=== PATIENT | male | born 1960 | race Caucasian/White ===

== ENCOUNTER 2024-12-27 16:41 | Inpatient (IN) | payer BC ==
[~2024-12-27] VITALS: Ht 175.3 cm; Wt 108.9 kg
[2024-12-27 17:53] LABS: BASOPHILS % 0.4 % (0.0-2.0); EOSINOPHILS % 2.7 % (0.0-5.0); HEMATOCRIT. 37.4 % (42.0-52.0); HEMOGLOBIN. 12.9 g/dL (14.0-18.0); LYMPHOCYTES % 10.6 % (20.0-50.0); MEAN PLATELET VOLUME 7.9 fl (7.4-10.4); MONOCYTES % 11.8 % (2.0-8.0); NEUTROPHILS % 74.5 % (40.0-76.0); PLATELET 355 x1000/uL (130-400); RED BLOOD CELL COUNT 4.04 mill/uL (4.7-6.1); RED CELL DISTRIBUTION WIDTH 14.3 % (11.6-14.6)
[2024-12-27 18:04] LABS: INR 1.0
[2024-12-27 18:07] LABS: CREATININE 0.8 mg/dL (0.6-1.3); UREA NITROGEN BLOOD 18 mg/dL (9-23)
[2024-12-27 18:08] LABS: ETHANOL BLOOD < 10 mg/dL (<10)
[2024-12-27 18:09] LABS: ASPARTATE AMINOTRANSFERASE 18 IU/L (<34); BILIRUBIN DIRECT 0.3 mg/dL (<=3.0)
[2024-12-27 18:10] LABS: BILIRUBIN TOTAL 0.9 mg/dL (0.1-1.0); PROTEIN TOTAL 4.5 g/dL (6.0-8.3)
[2024-12-27 18:13] LABS: TROPONIN I HIGH SENSITIVITY 58 ng/L (3.0-53)
[2024-12-27] MEDS: SODIUM CHLORIDE 0.9% 1,000 ML IV ONE (18:32)
[2024-12-27] MEDS: ASPIRIN 81MG TABLET PO ONE (18:54)
[2024-12-27] MEDS: KCL 20MEQ/100ML PREMIX 100 ML IV SCH (19:03)
[2024-12-27 21:00] LABS: TROPONIN I HIGH SENSITIVITY 413 ng/L (3.0-53)
[2024-12-27 22:30] VITALS: BP 122/82; PULSE 71; RESP 19; TEMP 36.3624
[2024-12-27] MEDS ORDERED: MAGNESIUM/ALUMINUM HYDROXIDE/SIMETHICONE 30ML UDC PO PRN (22:45)
[2024-12-27] MEDS ORDERED: DOCUSATE SODIUM 100MG CAPSULE PO PRN (22:45)
[2024-12-27] MEDS ORDERED: GUAIFENESIN 200MG/10ML SUGAR FREE UDC PO PRN (22:45)
[2024-12-27] MEDS ORDERED: CLONIDINE 0.1MG TABLET PO PRN (22:45)
[2024-12-27] MEDS ORDERED: IPRATROPIUM/ALBUTEROL 0.5-3(2.5)MG/3ML NEB HHN PRN (22:45)
[2024-12-27] MEDS ORDERED: ACETAMINOPHEN 325MG TABLET PO PRN (22:45)
[2024-12-27] MEDS: PANTOPRAZOLE SODIUM 40 MG/VIAL IV SCH (23:25)
[2024-12-27] MEDS: TAMSULOSIN HCL 0.4MG SR CAPSULE PO NR (23:26)
[2024-12-27] MEDS: KETOROLAC 15MG/ML VIAL IV PRN (23:26)
[2024-12-27] MEDS: MAGNESIUM 2 G PREMIX 50 ML IV NR (23:27)
[2024-12-27] MEDS: ENOXAPARIN 100MG/ML SYR SUBCUT SCH ×2 (23:29→23:31)
[2024-12-27] MEDS: SODIUM CHLORIDE 0.45% 1,000 ML IV SCH (23:30)
[2024-12-28] MEDS ORDERED: NITROGLYCERIN 0.4MG TABLET SL SL PRN (00:15)
[2024-12-28] MEDS: CALCIUM GLUCONATE 100MG/ML 10ML VIAL IV NR (01:27)
[2024-12-28] MEDS: MELATONIN 3MG TABLET PO SCH (01:30)
[2024-12-28] MEDS ORDERED: CELE-146 PO (03:17)
[2024-12-28] MEDS ORDERED: TAMS-54 PO (03:17)
[2024-12-28] MEDS ORDERED: LOSA100T33 PO (03:17)
[2024-12-28] MEDS ORDERED: EZET-83 PO (03:17)
[2024-12-28] MEDS ORDERED: ACET-2708 PO (03:17)
[2024-12-28] MEDS ORDERED: B12/1TAB PO (03:17)
[2024-12-28 04:00] VITALS: BP 116/70; PULSE 69; RESP 18; TEMP 36.3; O2SAT 100
[2024-12-28 06:27] LABS: BASOPHILS % 0.3 % (0.0-2.0); EOSINOPHILS % 1.2 % (0.0-5.0); HEMATOCRIT. 31.6 % (42.0-52.0); HEMOGLOBIN. 11.2 g/dL (14.0-18.0); LYMPHOCYTES % 8.9 % (20.0-50.0); MEAN PLATELET VOLUME 8.1 fl (7.4-10.4); MONOCYTES % 13.0 % (2.0-8.0); NEUTROPHILS % 76.6 % (40.0-76.0); PLATELET 285 x1000/uL (130-400); RED BLOOD CELL COUNT 3.44 mill/uL (4.7-6.1); RED CELL DISTRIBUTION WIDTH 13.9 % (11.6-14.6)
[2024-12-28 06:37] LABS: CREATININE 1.1 mg/dL (0.6-1.3)
[2024-12-28 06:38] LABS: CREATINE KINASE MB FRACTION 7.4 ng/mL (0.5-3.6); UREA NITROGEN BLOOD 21 mg/dL (9-23)
[2024-12-28 06:39] LABS: ASPARTATE AMINOTRANSFERASE 20 IU/L (<34)
[2024-12-28 06:40] LABS: BILIRUBIN DIRECT 0.5 mg/dL (<=3.0); BILIRUBIN TOTAL 1.3 mg/dL (0.1-1.0); PROTEIN TOTAL 5.2 g/dL (6.0-8.3)
[2024-12-28 08:00] VITALS: BP 123/78; PULSE 55; PULSE 68; RESP 18; TEMP 36.7; O2SAT 100; O2SAT 96
[2024-12-28 08:07] LABS: TROPONIN I HIGH SENSITIVITY 1286 ng/L (3.0-53)
[2024-12-28 08:20] LABS: CLARITY URINE CLEAR (CLEAR); COLOR URINE YELLOW (YELLOW); GLUCOSE URINE NEGATIVE (NEGATIVE); KETONES URINE NEGATIVE (NEGATIVE); LEUKOCYTE ESTERASE URINE NEGATIVE (NEGATIVE); NITRITE URINE NEGATIVE (NEGATIVE); OCCULT BLOOD URINE NEGATIVE (NEGATIVE); PH URINE 5.5 (4.5-8.0); PROTEIN URINE TRACE (NEGATIVE); SPECIFIC GRAVITY URINE 1.043 (1.005-1.030); UROBILINOGEN URINE 0.2 E.U./dL (0.2-1.0)
[2024-12-28 08:42] LABS: BACTERIA URINE NONE SEEN; RBC URINE 0-2 /hpf (0-2); SQUAMOUS EPITHELIAL CELL URINE RARE /lpf (RARE/1+); WBC URINE 0-2 /hpf (0-2); YEAST URINE NONE SEEN
[2024-12-28 08:45] LABS: *AMPHETAMINES SCREEN URINE NEGATIVE (NEGATIVE); *BARBITURATES SCREEN URINE NEGATIVE (NEGATIVE); *BENZODIAZEPINES SCREEN URINE NEGATIVE (NEGATIVE); *COCAINE SCREEN URINE NEGATIVE (NEGATIVE); METHADONE URINE SCREEN NEGATIVE (NEGATIVE); OPIATES URINE SCREEN NEGATIVE (NEGATIVE)
[2024-12-28 08:46] LABS: CANNABINOID URINE SCREEN NEGATIVE (NEGATIVE); ECSTASY MDMA SCREEN URINE NEGATIVE (NEGATIVE); PHENCYCLIDINE URINE SCREEN NEGATIVE (NEGATIVE)
[2024-12-28 08:51] LABS: BG BASE EXCESS -1.5 mmol/L (-2.0-3.0); BG CARBOXYHEMOGLOBIN 0.2 % (0.5-1.5); BG DEOXYHEMOGLOBIN 3.3 % (0.0-5.0); BG FRACTION INSPIRED OXYGEN 21; BG HCO3 ACT 23.0 mmol/L (21.0-28.0); BG METHEMOGLOBIN 0.3 % (0.5-1.5); BG OXYGEN SATURATION 96.7 % (94.0-98.0); BG OXYHEMOGLOBIN 96.2 % (94.0-98.0); BG PCO2 37.8 mmHg (35.0-48.0); BG PH 7.402 (7.350-7.450); BG PO2 87.7 mmHg (83.0-108.0); BG SAMPLE SITE LEFT BRACHIAL; BG TOTAL HEMOGLOBIN 12.1 g/dL (13.5-17.5); BG VENT MODE ROOM AIR
[2024-12-28] MEDS: ASPIRIN 81MG EC TABLET PO SCH (09:07)
[2024-12-28] MEDS: LOSARTAN 100 MG TABLET PO SCH (09:07)
[2024-12-28 12:00] VITALS: BP_SYST 125; BP_SYST 128; BP_DIAS 82; PULSE 60; PULSE 63; RESP 18; TEMP 36.6; O2SAT 100; O2SAT 97
[2024-12-28 16:00] VITALS: BP 128/73; PULSE 59; PULSE 70; RESP 18; TEMP 36.7; O2SAT 100; O2SAT 98
[2024-12-28 18:41] LABS: TRIGLYCERIDE 83.0 mg/dL (0-150)
[2024-12-28 18:42] LABS: CREATINE KINASE MB FRACTION 4.0 ng/mL (0.5-3.6); LDL CHOLESTEROL 53.0 mg/dL (5-100)
[2024-12-28 18:46] LABS: T4 FREE 1.19 ng/dL (0.89-1.76)
[2024-12-28 18:50] LABS: TROPONIN I HIGH SENSITIVITY 552.0 ng/L (3.0-53)
[2024-12-28 20:00] VITALS: BP 138/77; PULSE 72; RESP 20; TEMP 37.1; O2SAT 99
[2024-12-28] MEDS: ATORVASTATIN CALCIUM 40MG TABLET PO SCH (21:03)
[2024-12-28 22:38] LABS: TROPONIN I HIGH SENSITIVITY 508 ng/L (3.0-53)
[2024-12-29] VITALS: BP 127/78; PULSE 80; RESP 21; TEMP 36.7; O2SAT 98
[2024-12-29 01:06] LABS: CREATINE KINASE MB FRACTION 2.3 ng/mL (0.5-3.6)
[2024-12-29 01:42] LABS: TROPONIN I HIGH SENSITIVITY 391.0 ng/L (3.0-53)
[2024-12-29 04:00] VITALS: BP 136/77; PULSE 67; RESP 19; TEMP 36.8; O2SAT 98
[2024-12-29] MEDS ORDERED: LIDOCAINE HCL 1% 20ML VIAL ONE (07:21)
[2024-12-29] MEDS ORDERED: HEPARIN 1000 UNITS/ML 10ML ONE ×2 (07:22→08:14)
[2024-12-29] MEDS ORDERED: EPINEPHRINE 0.1MG/ML (1:10,000) 10ML SYR ONE (07:22)
[2024-12-29] MEDS ORDERED: IODIXANOL 320MG/ML 100 ML BOTTLE IV ONE (07:22)
[2024-12-29] MEDS ORDERED: ATROPINE SULFATE 1MG/10ML SYR ONE (07:22)
[2024-12-29] MEDS ORDERED: MIDAZOLAM HCL 2 MG/2 ML VIAL ONE (07:51)
[2024-12-29] MEDS ORDERED: FENTANYL CITRATE/PF 50MCG/ML 2ML VIAL ONE (07:52)
[2024-12-29] MEDS ORDERED: VERAPAMIL HCL 2.5 MG/1 ML 2ML VIAL IV ONE (08:14)
[2024-12-29] MEDS ORDERED: ATROPINE SULFATE 1MG/10ML SYR IV PRN (08:45)
[2024-12-29] MEDS: SODIUM CHLORIDE 0.45% 1,000 ML IV ONE (09:00)
[2024-12-29 14:00] VITALS: BP 151/89; PULSE 79; RESP 16; TEMP 36.7; O2SAT 97
[2024-12-29 16:00] VITALS: BP 142/75; PULSE 74; RESP 17; TEMP 36.7; O2SAT 97
[2024-12-29 16:29] LABS: BASOPHILS % 0.2 % (0.0-2.0); EOSINOPHILS % 1.5 % (0.0-5.0); HEMATOCRIT. 30.5 % (42.0-52.0); HEMOGLOBIN. 10.8 g/dL (14.0-18.0); LYMPHOCYTES % 8.3 % (20.0-50.0); MEAN PLATELET VOLUME 7.6 fl (7.4-10.4); MONOCYTES % 13.3 % (2.0-8.0); NEUTROPHILS % 76.7 % (40.0-76.0); PLATELET 308 x1000/uL (130-400); RED BLOOD CELL COUNT 3.31 mill/uL (4.7-6.1); RED CELL DISTRIBUTION WIDTH 13.7 % (11.6-14.6)
[2024-12-29 16:40] LABS: CREATINE KINASE MB FRACTION 1.0 ng/mL (0.5-3.6); CREATININE 1.0 mg/dL (0.6-1.3); UREA NITROGEN BLOOD 14 mg/dL (9-23)
[2024-12-29 16:42] LABS: PHOSPHORUS 3.4 mg/dL (2.5-4.9)
[2024-12-29 16:43] LABS: TROPONIN I HIGH SENSITIVITY 165 ng/L (3.0-53)
[2024-12-29] MEDS: ACETAMINOPHEN 325MG TABLET PO PRN (19:51)
[2024-12-29 20:00] VITALS: BP 142/86; PULSE 76; RESP 15; TEMP 37.1; O2SAT 96
[2024-12-30] VITALS (7 sets, daily range): BP systolic 135–149; BP diastolic 80–95; PULSE 61–74; RESP 12–17; TEMP 36.5–37.2; O2SAT 94–97
[2024-12-30 06:38] LABS: CREATININE 1.0 mg/dL (0.6-1.3); UREA NITROGEN BLOOD 12 mg/dL (9-23)
[2024-12-30 06:41] LABS: PHOSPHORUS 3.9 mg/dL (2.5-4.9)
[2024-12-30 06:42] LABS: BASOPHILS % 0.3 % (0.0-2.0); EOSINOPHILS % 2.8 % (0.0-5.0); HEMATOCRIT. 32.6 % (42.0-52.0); HEMOGLOBIN. 11.5 g/dL (14.0-18.0); LYMPHOCYTES % 10.5 % (20.0-50.0); MEAN PLATELET VOLUME 7.8 fl (7.4-10.4); MONOCYTES % 14.4 % (2.0-8.0); NEUTROPHILS % 72.0 % (40.0-76.0); PLATELET 300 x1000/uL (130-400); RED BLOOD CELL COUNT 3.56 mill/uL (4.7-6.1); RED CELL DISTRIBUTION WIDTH 13.7 % (11.6-14.6)
[2024-12-30] MEDS ORDERED: ALPRAZOLAM 0.25 MG TABLET PO PRN (16:00)
[2024-12-30] MEDS ORDERED: ACETAMINOPHEN 325MG TABLET PO PRN (16:00)
[2024-12-30] MEDS ORDERED: NITROGLYCERIN 0.4MG TABLET SL SL PRN (16:00)
[2024-12-30] MEDS ORDERED: BISACODYL 10MG SUPP PR PRN (21:00)
[2024-12-30] MEDS ORDERED: DIPHENHYDRAMINE 25MG CAPSULE PO PRN (21:00)
[2024-12-30] MEDS: ASCORBIC ACID 500 MG TABLET PO SCH (22:00)
[2024-12-30] MEDS: CHLORHEXIDINE GLUCONATE 4% EXTERNAL USE TOP SCH (22:01)
[2024-12-30] MEDS: ALLOPURINOL 300 MG TABLET PO SCH (22:01)
[2024-12-30] MEDS: SODIUM CHLORIDE 0.9% 3ML FLUSH IVF SCH (22:01)
[2024-12-30] MEDS: DOCUSATE SODIUM 100MG CAPSULE PO SCH (22:01)
[2024-12-31] VITALS (36 sets, daily range): BP systolic 83–139; BP diastolic 48–84; PULSE 58–103; RESP 9–25; TEMP 35.7–37.9; O2SAT 95–100
[2024-12-31] MEDS ORDERED: VANCOMYCIN 1G PREMIX 200 ML IV SCH (05:00)
[2024-12-31] MEDS ORDERED: EPINEPHRINE 5 MG in DEXT 5% WATER 250 ML IV PRN (05:00)
[2024-12-31] MEDS ORDERED: AMINOCAPROIC ACID 5,000 MG in SODIUM CHLORIDE 0.9% 250 ML IV PRN (05:00)
[2024-12-31] MEDS ORDERED: NICARDIPINE 40MG/200ML PREMIX 200 ML IV PRN (05:00)
[2024-12-31] MEDS ORDERED: NOREPINEPHRINE 8MG/250ML PMX 250 ML IV PRN (05:00)
[2024-12-31] MEDS ORDERED: DOBUTAMINE 250 MG/250 ML PREMIX IV PRN (05:00)
[2024-12-31] MEDS ORDERED: DEL NIDO CARDIOPLEGIA 1,000 ML (PREMIX) IV NR ×2 (05:00→06:15)
[2024-12-31] MEDS ORDERED: PAPAVERINE HCL 180MG in SODIUM CHLORIDE 0.9% 24ML IV PRN (05:00)
[2024-12-31 05:25] LABS: INR 1.0
[2024-12-31 05:34] LABS: CREATININE 1.2 mg/dL (0.6-1.3); UREA NITROGEN BLOOD 14 mg/dL (9-23)
[2024-12-31 05:36] LABS: PHOSPHORUS 5.2 mg/dL (2.5-4.9)
[2024-12-31] MEDS: CHLORHEXIDINE GLUCONATE 4% EXTERNAL USE TOP SCH (06:10)
[2024-12-31] MEDS ORDERED: PROPOFOL 10MG/ML 100ML 100 ML IV ONE (06:18)
[2024-12-31] MEDS ORDERED: POLYMYXIN B SULFATE 500000 UNITS/VIAL ONE (06:19)
[2024-12-31] MEDS ORDERED: THROMBIN (BOVINE) 5000 UNITS/VIAL TOP ONE (06:19)
[2024-12-31] MEDS ORDERED: HEPARIN 1000 UNITS/ML 10ML ONE (06:21)
[2024-12-31] MEDS ORDERED: SEVOFLURANE 250 ML LIQUID INH ONE ×2 (06:22)
[2024-12-31] MEDS ORDERED: NITROGLYCERIN 50MG PREMIX 250 ML IV ONE (06:22)
[2024-12-31] MEDS ORDERED: DEXMEDETOMIDINE 100 ML IV ONE (06:36)
[2024-12-31] MEDS ORDERED: DEXMEDETOMIDINE 250 ML IV PRN (06:45)
[2024-12-31] MEDS ORDERED: CEFAZOLIN SODIUM 1000MG/VIAL ONE ×3 (06:46→15:31)
[2024-12-31] MEDS ORDERED: PROPOFOL 200MG/20ML VIAL IV ONE (06:47)
[2024-12-31] MEDS ORDERED: MIDAZOLAM HCL 5 MG/5 ML VIAL ONE (06:47)
[2024-12-31 06:52] LABS: BASOPHILS % 0.4 % (0.0-2.0); EOSINOPHILS % 1.8 % (0.0-5.0); HEMATOCRIT. 30.7 % (42.0-52.0); HEMOGLOBIN. 10.7 g/dL (14.0-18.0); LYMPHOCYTES % 11.9 % (20.0-50.0); MEAN PLATELET VOLUME 7.5 fl (7.4-10.4); MONOCYTES % 14.2 % (2.0-8.0); NEUTROPHILS % 71.7 % (40.0-76.0); PLATELET 307 x1000/uL (130-400); RED BLOOD CELL COUNT 3.32 mill/uL (4.7-6.1); RED CELL DISTRIBUTION WIDTH 13.6 % (11.6-14.6)
[2024-12-31] MEDS ORDERED: FENTANYL CITRATE/PF 50MCG/ML 2ML VIAL ONE ×5 (06:53)
[2024-12-31] MEDS ORDERED: ROCURONIUM BROMIDE 10MG/ML VIAL 5ML IV ONE ×4 (06:58→15:58)
[2024-12-31] MEDS ORDERED: ACETAMINOPHEN 1000MG/100ML 100 ML IV ONE (07:19)
[2024-12-31] MEDS ORDERED: CALCIUM CHLORIDE 1GM/10ML SYR IV ONE ×3 (09:05→13:14)
[2024-12-31] MEDS ORDERED: AMINOCAPROIC ACID 250 MG/ML 20ML VIAL ONE (10:43)
[2024-12-31 16:26] LABS: HEMATOCRIT. 24.0 % (42.0-52.0); HEMOGLOBIN. 8.3 g/dL (14.0-18.0); MEAN PLATELET VOLUME 7.3 fl (7.4-10.4); PLATELET 262 x1000/uL (130-400); RED BLOOD CELL COUNT 2.65 mill/uL (4.7-6.1); RED CELL DISTRIBUTION WIDTH 13.1 % (11.6-14.6)
[2024-12-31] MEDS ORDERED: KCL 10MEQ/50ML PREMIX 200 ML IV PRN (16:30)
[2024-12-31] MEDS ORDERED: KCL 10MEQ/50ML PREMIX 150 ML IV PRN (16:30)
[2024-12-31] MEDS ORDERED: DEXT 5%/0.45% NACL 1000ML 1,000 ML IV SCH (16:30)
[2024-12-31] MEDS ORDERED: DEXTROSE 50% WATER 50ML SYRINGE IV PRN ×2 (16:30)
[2024-12-31 16:43] LABS: CREATININE 1.3 mg/dL (0.6-1.3)
[2024-12-31 16:44] LABS: INR 1.1; UREA NITROGEN BLOOD 19 mg/dL (9-23)
[2024-12-31 16:45] LABS: ASPARTATE AMINOTRANSFERASE 32 IU/L (<34)
[2024-12-31 16:46] LABS: BILIRUBIN TOTAL 2.6 mg/dL (0.1-1.0); PHOSPHORUS 6.7 mg/dL (2.5-4.9); PROTEIN TOTAL 4.9 g/dL (6.0-8.3)
[2024-12-31] MEDS: BLOOD SUGAR DIAGNOSTIC STRIP TEST SCH (17:00)
[2024-12-31 17:13] LABS: BG BASE EXCESS -2.3 mmol/L (-2.0-3.0); BG CARBOXYHEMOGLOBIN 0.3 % (0.5-1.5); BG DEOXYHEMOGLOBIN 0.9 % (0.0-5.0); BG FRACTION INSPIRED OXYGEN 100; BG HCO3 ACT 22.6 mmol/L (21.0-28.0); BG METHEMOGLOBIN 0.3 % (0.5-1.5); BG OXYGEN SATURATION 99.1 % (94.0-98.0); BG OXYHEMOGLOBIN 98.5 % (94.0-98.0); BG PCO2 39.1 mmHg (35.0-48.0); BG PEEP (cmH2O) 5.0 cmH2O; BG PH 7.379 (7.350-7.450); BG PO2 233.6 mmHg (83.0-108.0); BG SAMPLE SITE ALINE; BG TIDAL VOLUME(mL) 550.0 mL; BG TOTAL HEMOGLOBIN 9.7 g/dL (13.5-17.5); BG VENT MODE VENT - AC; BG VENT RATE 15.0 set
[2024-12-31 17:15] LABS: BAND% 2.0 % (1.0-6.0); LYMPHOCYTES % MANUAL 5.0 % (20.0-50.0); MONOCYTES % MANUAL 10.0 % (2.0-8.0); NEUTROPHILS % MANUAL 83.0 % (45.0-75.0); PLATELET ESTIMATE NORMAL
[2024-12-31] MEDS ORDERED: DOPAMINE 400MG/250ML PREMIX 250 ML IV PRN (17:15)
[2024-12-31] MEDS ORDERED: MAGNESIUM 2 G PREMIX 50 ML IV PRN (17:15)
[2024-12-31] MEDS ORDERED: NITROGLYCERIN 50MG PREMIX 250 ML IV PRN (17:15)
[2024-12-31] MEDS ORDERED: ONDANSETRON HCL 4MG/2ML INJ IV PRN (17:15)
[2024-12-31] MEDS ORDERED: ALBUMIN HUMAN 12.5G/250ML (5%) IV PRN (17:15)
[2024-12-31] MEDS ORDERED: SODIUM CHLORIDE 0.9% 500 ML IV PRN (17:15)
[2024-12-31] MEDS ORDERED: MAGNESIUM 1 G PREMIX 100 ML IV PRN (17:15)
[2024-12-31] MEDS ORDERED: MAGNESIUM SULFATE 3 GM in DEXT 5% WATER 100 ML IV PRN (17:15)
[2024-12-31] MEDS: PROPOFOL 10MG/ML 100ML 100 ML IV SCH (17:26)
[2024-12-31] MEDS: DOPAMINE 400MG/250ML PREMIX 250 ML IV PRN (17:27)
[2024-12-31] MEDS: INSULIN REGULAR 100U/100ML PMX 100 ML IV SCH (17:27)
[2024-12-31] MEDS: DEXT 5%/0.45% NACL 1000ML 1,000 ML IV SCH (17:32)
[2024-12-31] MEDS: ALBUMIN HUMAN 12.5G/250ML (5%) IV SCH (17:32)
[2024-12-31 17:33] LABS: BG BASE EXCESS -3.5 mmol/L (-2.0-3.0); BG CARBOXYHEMOGLOBIN 0.4 % (0.5-1.5); BG DEOXYHEMOGLOBIN 6.2 % (0.0-5.0); BG HCO3 ACT 21.1 mmol/L (21.0-28.0); BG METHEMOGLOBIN 0.0 % (0.5-1.5); BG OXYGEN SATURATION 93.8 % (94.0-98.0); BG OXYHEMOGLOBIN 93.4 % (94.0-98.0); BG PCO2 35.6 mmHg (35.0-48.0); BG PH 7.390 (7.350-7.450); BG PO2 73.6 mmHg (83.0-108.0); BG SAMPLE SITE VBG - N/A; BG TOTAL HEMOGLOBIN 8.7 g/dL (13.5-17.5); BG VENT MODE VBG - N/A
[2024-12-31] MEDS: DOCUSATE SODIUM 100MG CAPSULE PO SCH (18:10)
[2024-12-31] MEDS: CEFAZOLIN 1000MG PREMIX 50 ML IV SCH (18:10)
[2024-12-31] MEDS: MAGNESIUM HYDROXIDE 400MG/5ML 30ML UDC PO SCH (18:10)
[2024-12-31 18:57] LABS: BG BASE EXCESS 0.1 mmol/L (-2.0-3.0); BG CARBOXYHEMOGLOBIN 0.3 % (0.5-1.5); BG DEOXYHEMOGLOBIN 1.2 % (0.0-5.0); BG FRACTION INSPIRED OXYGEN 70; BG HCO3 ACT 24.8 mmol/L (21.0-28.0); BG METHEMOGLOBIN 0.3 % (0.5-1.5); BG OXYGEN SATURATION 98.8 % (94.0-98.0); BG OXYHEMOGLOBIN 98.2 % (94.0-98.0); BG PCO2 40.2 mmHg (35.0-48.0); BG PEEP (cmH2O) 5.0 cmH2O; BG PH 7.408 (7.350-7.450); BG PO2 175.1 mmHg (83.0-108.0); BG SAMPLE SITE ALINE; BG TIDAL VOLUME(mL) 550.0 mL; BG TOTAL HEMOGLOBIN 9.4 g/dL (13.5-17.5); BG VENT MODE VENT - AC; BG VENT RATE 15.0 set
[2024-12-31] MEDS: ACETAMINOPHEN 325MG TABLET PO PRN (19:44)
[2024-12-31] MEDS: IPRATROPIUM/ALBUTEROL 0.5-3(2.5)MG/3ML NEB HHN SCH (21:13)
[2024-12-31] MEDS: MORPHINE SULFATE 2 MG/ML INJ (NOT FOR IM USE) IV PRN (23:38)
[2025-01-01] VITALS (112 sets, daily range): BP systolic 79–126; BP diastolic 46–77; PULSE 71–94; RESP 0–28; TEMP 36.6–37.7; O2SAT 90–100
[2025-01-01 00:15] LABS: MEAN PLATELET VOLUME 7.5 fl (7.4-10.4); PLATELET 208 x1000/uL (130-400); RED BLOOD CELL COUNT 2.06 mill/uL (4.7-6.1); RED CELL DISTRIBUTION WIDTH 13.7 % (11.6-14.6)
[2025-01-01 00:19] LABS: HEMATOCRIT. 18.8 % (42.0-52.0)
[2025-01-01 00:26] LABS: CREATININE 1.0 mg/dL (0.6-1.3)
[2025-01-01 00:27] LABS: HEMOGLOBIN. 6.6 g/dL (14.0-18.0); UREA NITROGEN BLOOD 17 mg/dL (9-23)
[2025-01-01 00:29] LABS: PHOSPHORUS 4.5 mg/dL (2.5-4.9)
[2025-01-01] MEDS: KCL 10MEQ/50ML PREMIX 100 ML IV PRN (01:09)
[2025-01-01] MEDS: MAGNESIUM SULFATE 3 GM in DEXT 5% WATER 100 ML IV PRN (01:25)
[2025-01-01 02:35] LABS: BAND% 4.0 % (1.0-6.0); LYMPHOCYTES % MANUAL 4.0 % (20.0-50.0); MONOCYTES % MANUAL 9.0 % (2.0-8.0); NEUTROPHILS % MANUAL 83.0 % (45.0-75.0)
[2025-01-01 02:36] LABS: PLATELET ESTIMATE NORMAL
[2025-01-01 04:53] LABS: HEMATOCRIT. 24.2 % (42.0-52.0); HEMOGLOBIN. 8.5 g/dL (14.0-18.0); MEAN PLATELET VOLUME 7.1 fl (7.4-10.4); PLATELET 204 x1000/uL (130-400); RED BLOOD CELL COUNT 2.69 mill/uL (4.7-6.1); RED CELL DISTRIBUTION WIDTH 14.0 % (11.6-14.6)
[2025-01-01 05:04] LABS: CREATININE 0.9 mg/dL (0.6-1.3); TRIGLYCERIDE 50 mg/dL (0-150); UREA NITROGEN BLOOD 17 mg/dL (9-23)
[2025-01-01 05:06] LABS: PHOSPHORUS 4.7 mg/dL (2.5-4.9)
[2025-01-01] MEDS: INSULIN REGULAR 100U/100ML PMX 100 ML IV SCH (05:10)
[2025-01-01 05:36] LABS: INR 1.1
[2025-01-01 05:47] LABS: BG BASE EXCESS 2.4 mmol/L (-2.0-3.0); BG CARBOXYHEMOGLOBIN 0.3 % (0.5-1.5); BG DEOXYHEMOGLOBIN 2.2 % (0.0-5.0); BG FRACTION INSPIRED OXYGEN 40; BG HCO3 ACT 25.6 mmol/L (21.0-28.0); BG METHEMOGLOBIN 0.3 % (0.5-1.5); BG OXYGEN SATURATION 97.8 % (94.0-98.0); BG OXYHEMOGLOBIN 97.2 % (94.0-98.0); BG PCO2 34.3 mmHg (35.0-48.0); BG PEEP (cmH2O) 5.0 cmH2O; BG PH 7.491 (7.350-7.450); BG PO2 106.8 mmHg (83.0-108.0); BG SAMPLE SITE ALINE; BG TOTAL HEMOGLOBIN 10.0 g/dL (13.5-17.5); BG VENT MODE VENT - CPAP
[2025-01-01] MEDS: MAGNESIUM 2 G PREMIX 50 ML IV PRN (08:28)
[2025-01-01] MEDS: FAMOTIDINE 20MG/2ML VIAL IV SCH (08:28)
[2025-01-01] MEDS: DOPAMINE 400MG/250ML PREMIX 250 ML IV PRN (08:29)
[2025-01-01] MEDS: OXYCODONE HCL/ACETAMINOPHEN 5/325MG TABLET PO PRN ×2 (08:47→13:21)
[2025-01-01 09:55] LABS: BAND% 6.0 % (1.0-6.0); LYMPHOCYTES % MANUAL 9.0 % (20.0-50.0); MONOCYTES % MANUAL 9.0 % (2.0-8.0); NEUTROPHILS % MANUAL 76.0 % (45.0-75.0); PLATELET ESTIMATE NORMAL
[2025-01-01 10:40] LABS: HEMATOCRIT. 23.4 % (42.0-52.0); HEMOGLOBIN. 8.3 g/dL (14.0-18.0); MEAN PLATELET VOLUME 7.5 fl (7.4-10.4); PLATELET 202 x1000/uL (130-400); RED BLOOD CELL COUNT 2.59 mill/uL (4.7-6.1); RED CELL DISTRIBUTION WIDTH 14.2 % (11.6-14.6)
[2025-01-01 10:48] LABS: CREATININE 0.8 mg/dL (0.6-1.3)
[2025-01-01 10:49] LABS: UREA NITROGEN BLOOD 17 mg/dL (9-23)
[2025-01-01 10:51] LABS: PHOSPHORUS 3.8 mg/dL (2.5-4.9)
[2025-01-01] MEDS: ASPIRIN 81MG EC TABLET PO SCH (10:55)
[2025-01-01] MEDS: TAMSULOSIN HCL 0.4MG SR CAPSULE PO SCH (10:55)
[2025-01-01 11:25] LABS: PLATELET ESTIMATE NORMAL
[2025-01-01 11:27] LABS: BAND% 5.0 % (1.0-6.0); LYMPHOCYTES % MANUAL 4.0 % (20.0-50.0); MONOCYTES % MANUAL 10.0 % (2.0-8.0); NEUTROPHILS % MANUAL 81.0 % (45.0-75.0)
[2025-01-01] MEDS: MAGNESIUM HYDROXIDE 400MG/5ML 30ML UDC PO SCH (12:47)
[2025-01-01] MEDS: ALBUMIN HUMAN 12.5G/250ML (5%) IV SCH (16:26)
[2025-01-01 17:41] LABS: HEMATOCRIT. 27.1 % (42.0-52.0); HEMOGLOBIN. 9.4 g/dL (14.0-18.0); MEAN PLATELET VOLUME 7.5 fl (7.4-10.4); PLATELET 217 x1000/uL (130-400); RED BLOOD CELL COUNT 3.00 mill/uL (4.7-6.1); RED CELL DISTRIBUTION WIDTH 14.5 % (11.6-14.6)
[2025-01-01 18:05] LABS: CREATININE 1.2 mg/dL (0.6-1.3); UREA NITROGEN BLOOD 20 mg/dL (9-23)
[2025-01-01 18:07] LABS: PHOSPHORUS 4.2 mg/dL (2.5-4.9)
[2025-01-01] MEDS: FUROSEMIDE 20MG/2ML VIAL IVP SCH (18:27)
[2025-01-01 19:18] LABS: LYMPHOCYTES % MANUAL 4.0 % (20.0-50.0); MONOCYTES % MANUAL 9.0 % (2.0-8.0); NEUTROPHILS % MANUAL 87.0 % (45.0-75.0)
[2025-01-01 19:19] LABS: PLATELET ESTIMATE NORMAL
[2025-01-01] MEDS ORDERED: NALOXONE HCL 0.4MG/ML VIAL IV PRN (20:00)
[2025-01-01] MEDS: ATORVASTATIN CALCIUM 40MG TABLET PO SCH (20:30)
[2025-01-01 23:59] LABS: HEMATOCRIT. 25.7 % (42.0-52.0); HEMOGLOBIN. 9.0 g/dL (14.0-18.0); MEAN PLATELET VOLUME 7.6 fl (7.4-10.4); PLATELET 207 x1000/uL (130-400); RED BLOOD CELL COUNT 2.85 mill/uL (4.7-6.1); RED CELL DISTRIBUTION WIDTH 14.3 % (11.6-14.6)
[2025-01-02] VITALS (87 sets, daily range): BP systolic 82–132; BP diastolic 49–72; PULSE 72–94; RESP 10–26; TEMP 36.5–37.1; O2SAT 88–99
[2025-01-02 00:12] LABS: CREATININE 1.2 mg/dL (0.6-1.3); UREA NITROGEN BLOOD 18 mg/dL (9-23)
[2025-01-02 00:14] LABS: PHOSPHORUS 3.6 mg/dL (2.5-4.9)
[2025-01-02] MEDS: MAGNESIUM 1 G PREMIX 100 ML IV PRN (01:01)
[2025-01-02 05:17] LABS: CREATININE 1.2 mg/dL (0.6-1.3)
[2025-01-02 05:18] LABS: UREA NITROGEN BLOOD 18 mg/dL (9-23)
[2025-01-02 05:20] LABS: PHOSPHORUS 3.1 mg/dL (2.5-4.9)
[2025-01-02 07:07] LABS: LYMPHOCYTES % MANUAL 1.0 % (20.0-50.0); MONOCYTES % MANUAL 11.0 % (2.0-8.0); NEUTROPHILS % MANUAL 88.0 % (45.0-75.0); PLATELET ESTIMATE NORMAL
[2025-01-02] MEDS: FUROSEMIDE 20MG/2ML VIAL IVP SCH (10:37)
[2025-01-02] MEDS: MIDODRINE HCL 5MG TABLET PO SCH (12:16)
[2025-01-02] MEDS ORDERED: NON FORMULARY MED INJ SCH (13:00)
[2025-01-02] MEDS: IRON SUCROSE COMPLEX 100 MG/5 ML ML IV SCH (14:22)
[2025-01-02 16:23] LABS: HEMATOCRIT. 29.0 % (42.0-52.0); HEMOGLOBIN. 9.9 g/dL (14.0-18.0); MEAN PLATELET VOLUME 8.6 fl (7.4-10.4); PLATELET 258 x1000/uL (130-400); RED BLOOD CELL COUNT 3.15 mill/uL (4.7-6.1); RED CELL DISTRIBUTION WIDTH 14.9 % (11.6-14.6)
[2025-01-02 16:39] LABS: BAND% 1.0 % (1.0-6.0); LYMPHOCYTES % MANUAL 4.0 % (20.0-50.0); MONOCYTES % MANUAL 12.0 % (2.0-8.0); NEUTROPHILS % MANUAL 83.0 % (45.0-75.0); PLATELET ESTIMATE NORMAL
[2025-01-02] MEDS: EPOETIN ALFA-EPBX 10,000 UNITS/ML VIAL SUBCUT SCH (21:15)
[2025-01-03] VITALS (52 sets, daily range): BP systolic 97–142; BP diastolic 62–79; PULSE 70–93; RESP 9–23; TEMP 36.7–36.9; O2SAT 92–99
[2025-01-03 05:39] LABS: HEMATOCRIT. 26.8 % (42.0-52.0); HEMOGLOBIN. 9.4 g/dL (14.0-18.0); MEAN PLATELET VOLUME 7.6 fl (7.4-10.4); PLATELET 252 x1000/uL (130-400); RED BLOOD CELL COUNT 2.93 mill/uL (4.7-6.1); RED CELL DISTRIBUTION WIDTH 14.5 % (11.6-14.6)
[2025-01-03 05:52] LABS: CREATININE 1.1 mg/dL (0.6-1.3)
[2025-01-03 05:53] LABS: UREA NITROGEN BLOOD 22 mg/dL (9-23)
[2025-01-03 05:55] LABS: PHOSPHORUS 3.1 mg/dL (2.5-4.9)
[2025-01-03] MEDS ORDERED: DEXTROSE 50% WATER 50ML SYRINGE IV PRN (07:30)
[2025-01-03] MEDS: INSULIN LISPRO 100 UNITS/ML SUBCUT SCH (08:20)
[2025-01-03] MEDS: BLOOD SUGAR DIAGNOSTIC STRIP TEST SCH (08:46)
[2025-01-03 14:34] LABS: LYMPHOCYTES % MANUAL 7.0 % (20.0-50.0); MONOCYTES % MANUAL 5.0 % (2.0-8.0); NEUTROPHILS % MANUAL 88.0 % (45.0-75.0); PLATELET ESTIMATE NORMAL
[2025-01-04] VITALS (37 sets, daily range): BP systolic 100–137; BP diastolic 66–125; PULSE 69–99; RESP 9–22; TEMP 36.8–37.1; O2SAT 95–100
[2025-01-04 07:17] LABS: CREATININE 1.0 mg/dL (0.6-1.3); UREA NITROGEN BLOOD 16 mg/dL (9-23)
[2025-01-04 07:19] LABS: HEMATOCRIT. 28.0 % (42.0-52.0); HEMOGLOBIN. 9.7 g/dL (14.0-18.0); MEAN PLATELET VOLUME 8.0 fl (7.4-10.4); PLATELET 318 x1000/uL (130-400); RED BLOOD CELL COUNT 3.05 mill/uL (4.7-6.1); RED CELL DISTRIBUTION WIDTH 14.4 % (11.6-14.6)
[2025-01-04] MEDS: FAMOTIDINE 20MG TABLET PO SCH (09:24)
[2025-01-04 10:37] LABS: BAND% 3.0 % (1.0-6.0); EOSINOPHILS % MANUAL 1.0 % (0.0-5.0); LYMPHOCYTES % MANUAL 8.0 % (20.0-50.0); MONOCYTES % MANUAL 8.0 % (2.0-8.0); NEUTROPHILS % MANUAL 80.0 % (45.0-75.0); PLATELET ESTIMATE NORMAL
[2025-01-05] VITALS (26 sets, daily range): BP systolic 100–144; BP diastolic 49–83; PULSE 62–91; RESP 10–22; TEMP 36.7–36.8; O2SAT 95–100
[2025-01-05 06:33] LABS: HEMATOCRIT. 28.3 % (42.0-52.0); HEMOGLOBIN. 9.9 g/dL (14.0-18.0); MEAN PLATELET VOLUME 7.2 fl (7.4-10.4); PLATELET 405 x1000/uL (130-400); RED BLOOD CELL COUNT 3.10 mill/uL (4.7-6.1); RED CELL DISTRIBUTION WIDTH 14.0 % (11.6-14.6)
[2025-01-05 06:57] LABS: CREATININE 0.9 mg/dL (0.6-1.3); UREA NITROGEN BLOOD 14 mg/dL (9-23)
[2025-01-05 18:53] LABS: BAND% 9.0 % (1.0-6.0); EOSINOPHILS % MANUAL 1.0 % (0.0-5.0); LYMPHOCYTES % MANUAL 10.0 % (20.0-50.0); METAMYELOCYTES % 2.0 % (0-0); MONOCYTES % MANUAL 11.0 % (2.0-8.0); MYELOCYTES % 2.0 % (0-0); NEUTROPHILS % MANUAL 65.0 % (45.0-75.0)
[2025-01-05 18:54] LABS: PLATELET ESTIMATE SLIGHTLY INCREASED; PLATELET SATELLITISM FEW
[2025-01-05] MEDS ORDERED: ACETAMINOPHEN 650MG/20.3ML UDC PO PRN (21:30)
[2025-01-05] MEDS: IOHEXOL-350 100 ML BOTTLE ONE (21:31)
[2025-01-05] MEDS: OXYCODONE HCL/ACETAMINOPHEN 5/325MG TABLET PO PRN (21:52)
[2025-01-06] VITALS: BP 117/79; PULSE 71; RESP 18; TEMP 36.8; O2SAT 98
[2025-01-06 04:00] VITALS: BP 127/78; PULSE 68; RESP 18; TEMP 36.2; O2SAT 97
[2025-01-06 08:00] VITALS: BP 121/78; PULSE 83; RESP 16; TEMP 36.9; O2SAT 95
[2025-01-06] MEDS ORDERED: ASPI-1497 MT (11:32)
[2025-01-06] MEDS ORDERED: ATOR40TA70 MT (11:32)
[2025-01-06 12:00] VITALS: BP 121/70; PULSE 84; RESP 20; TEMP 36.8; O2SAT 94
[2025-01-06 15:17] VITALS: BP 120/63; PULSE 82; RESP 15; TEMP 97.9
== END 2025-01-06 19:05 | disposition home health service (06) | DRG 233 ==
LOC: ER 16:41 → EDBEDREQ 17:00 → 6WST 20:06 → EDBEDREQTM 20:25 → EDBEDREQ 20:25 → ENRESERV 21:56 → 3WST 12-29 13:54 → CVICU 12-31 08:13 → 3WST 01-05 11:00 → CVICU 01-05 11:16 → 3WST 01-05 12:28
PROVIDERS: ADMIT Internal Medicine; ATTEND Internal Medicine
PROC: 4A023N7 Measurement of Cardiac Sampling and Pressure, Left Heart, Percutaneous Approach (ICD-10-PCS; 2024-12-30)
PROC: B2111ZZ Fluoroscopy of Multiple Coronary Arteries using Low Osmolar Contrast (ICD-10-PCS; 2024-12-30)
PROC: B2151ZZ Fluoroscopy of Left Heart using Low Osmolar Contrast (ICD-10-PCS; 2024-12-30)
PROC: 06BP4ZZ Excision of Right Saphenous Vein, Percutaneous Endoscopic Approach (ICD-10-PCS; principal; 2024-12-31)
PROC: 02100Z9 Bypass Coronary Artery, One Artery from Left Internal Mammary, Open Approach (ICD-10-PCS; 2024-12-31)
PROC: 021109W Bypass Coronary Artery, Two Arteries from Aorta with Autologous Venous Tissue, Open Approach (ICD-10-PCS; 2024-12-31)
PROC: 02L70CK Occlusion of Left Atrial Appendage with Extraluminal Device, Open Approach (ICD-10-PCS; 2024-12-31)
PROC: B245ZZ4 Ultrasonography of Left Heart, Transesophageal (ICD-10-PCS; 2024-12-31)
PROC: 30233K1 Transfusion of Nonautologous Frozen Plasma into Peripheral Vein, Percutaneous Approach (ICD-10-PCS; 2024-12-31)
PROC: 30233N1 Transfusion of Nonautologous Red Blood Cells into Peripheral Vein, Percutaneous Approach (ICD-10-PCS; 2024-12-31)
PROC: 30233R1 Transfusion of Nonautologous Platelets into Peripheral Vein, Percutaneous Approach (ICD-10-PCS; 2024-12-31)
DX: I21.4 Non-ST elevation (NSTEMI) myocardial infarction (principal); I46.9 Cardiac arrest, cause unspecified; E87.0 Hyperosmolality and hypernatremia; M96.A3 Multiple fractures of ribs associated with chest compression and cardiopulmonary resuscitation; I10 Essential (primary) hypertension; E87.6 Hypokalemia; E83.51 Hypocalcemia; D64.9 Anemia, unspecified; E83.42 Hypomagnesemia; E78.5 Hyperlipidemia, unspecified; N26.1 Atrophy of kidney (terminal); N40.0 Benign prostatic hyperplasia without lower urinary tract symptoms; M17.12 Unilateral primary osteoarthritis, left knee; N28.1 Cyst of kidney, acquired; I25.10 Atherosclerotic heart disease of native coronary artery without angina pectoris; Z79.82 Long term (current) use of aspirin; Z79.899 Other long term (current) drug therapy
CPT/HCPCS: 31720; 36415; 36600; 71045; 71275; 80048; 80053; 80061; 80076; 80305; 80320; 81003; 82375; 82550; 82553; 82803; 82805; 82962; 83036; 83605; 83735; 83880; 84100; 84153; 84439; 84443; 84478; 84484; 85025; 85347; 85379; 85384; 86850; 86900; 86920; 86927; 87070; 93005; 93306; 93454; 93880; 93970; 94002; 94003; 94070; 94640; 94664; 96360; 97110; 97116; 97162; 97166; 97530; 97535; 98960; 99291; A4606; C1729; C1751; C1758; C1769; C1887; C1893; J0461; J0612; J0690; J0885; J1265; J1308; J1644; J1650; J1815; J1885; J1938; J2003; J2250; J2270; J2470; J2704; J3010; J3373; J3475; J3480; J3490; J7030; J7050; J7060; L3908; P9016; P9017; P9034; P9041; Q9967; G0480; J0131